=== PATIENT | female | born 1955 | race Caucasian/White ===

== ENCOUNTER 2019-07-06 01:15 | Inpatient (IN) ==
[2019-07-06] MEDS ORDERED: Gadolinium Contrast Agent (WT Based) IV PRN (01:20)
[2019-07-06] MEDS: tiZANidine 4 MG TABLET PO SCH ×3 (05:33→21:10)
[2019-07-06] MEDS ORDERED: *HR* FentaNYL (PF) 100 MCG/2 ML VIAL IVP ONE (07:46)
[2019-07-06] MEDS ORDERED: Acetaminophen IV 1,000 MG/100 ML INFUS..BTL IVPB ONE (10:14)
[2019-07-06] MEDS ORDERED: *HR* LORazepam 2 MG/ML VIAL IVP ONE (10:14)
[2019-07-06 11:27] LABS: Basophils % 0.1 %; Hematocrit 46.3 % (35.3-44.9); Hemoglobin 15.5 g/dL (11.5-15.4); Immature Granulocytes % 0.6 % (0-4); Lymphocytes # 1.3 K/mcL (0.6-4.6); Mean Corpuscular HGB Conc 33.5 g/dL (31.6-35.5); Mean Corpuscular Hemoglobin 30.4 pg (28.0-33.3); Mean Corpuscular Volume 90.8 fL (83.0-100.0); Mean Platelet Volume 9.5 fL (9.4-12.4); Monocytes # 0.1 K/mcL (0.0-1.3); Monocytes % 1.6 %; Neutrophils # 6.7 K/mcL (1.6-8.9); Platelet Count 196 K/mcL (140-400); Red Cell Distribution Width 13.3 % (11.5-14.5); Segmented Neutrophils % 81.7 %; White Blood Count 8.3 K/mcL (4.3-11.1)
[2019-07-06 11:37] LABS: Prothrombin Time 11.7 Seconds (9.4-12.1)
[2019-07-06 11:45] LABS: BUN/Creatinine Ratio 13 (6-26); Blood Urea Nitrogen 10 mg/dL (8-23); Calcium 9.6 mg/dL (8.6-10.3); Carbon Dioxide 29 mEq/L (23-29); Chloride 103 mEq/L (98-107); Glucose 159 mg/dL (70-105); Osmolality,Calculated 290 (280-300); Potassium 4.1 mEq/L (3.5-5.1); Sodium 139 mEq/L (136-145); eGFR For African Americans > 60 (> 60); eGFR For Non-African Americans > 60 (> 60)
[2019-07-06] MEDS ORDERED: Fluticasone Propionate Nasal 50 MCG/SPRAY BOTTLE NS PRN (11:57)
[2019-07-06] MEDS ORDERED: EPINEPHRINE 0.3 MG IJ PRN (11:57)
[2019-07-06] MEDS ORDERED: Ondansetron ODT 4 MG TAB.RAPDIS SL PRN (11:57)
[2019-07-06] MEDS ORDERED: Levalbuterol 1 PUFF INHALER IH PRN (11:57)
[2019-07-06] MEDS ORDERED: Furosemide 40 MG TABLET PO PRN (11:57)
[2019-07-06] MEDS ORDERED: *HR* FentaNYL (PF) 100 MCG/2 ML VIAL IVP PRN (12:04)
[2019-07-06] MEDS ORDERED: Gabapentin 300 MG CAPSULE PO STA (13:18)
[2019-07-06] MEDS: *HR* OxyCODONE ER (12 HR) 10 MG TABLET PO SCH ×2 (13:43→21:10)
[2019-07-06] MEDS ORDERED: NON-FORMULARY MEDICATION 1 EACH EACH (Dextroamphetamine/Amphetamine [Adderall 20 Mg Tablet PO SCH (15:00)
[2019-07-06] MEDS ORDERED: Gabapentin 300 MG CAPSULE PO SCH (15:00)
[2019-07-06] MEDS: *HR* OxyCODONE Immed Rel 15 MG TABLET PO PRN (15:15)
[2019-07-06] MEDS: Budesonide/Formoterol 80/4.5 1 PUFF INH IH SCH (20:43)
[2019-07-06] MEDS ORDERED: NON-FORMULARY MEDICATION 1 EACH EACH (Oxygen 2 L) NS SCH (21:00)
[2019-07-06] MEDS: Azelastine 0.1% Nasal Spray 30 ML BOTTLE NS SCH (21:10)
[2019-07-06] MEDS: Gabapentin 300 MG CAPSULE PO SCH (21:10)
[2019-07-06] MEDS: Artificial Tears SOLN 15 ML BOTTLE BOTH EYES SCH (21:10)
[2019-07-07] MEDS: *HR* OxyCODONE Immed Rel 15 MG TABLET PO PRN ×2 (00:34→12:03)
[2019-07-07] MEDS ORDERED: tiZANidine 4 MG TABLET PO ONE (04:01)
[2019-07-07 07:31] LABS: Hematocrit 44.9 % (35.3-44.9); Hemoglobin 14.4 g/dL (11.5-15.4); Mean Corpuscular HGB Conc 32.1 g/dL (31.6-35.5); Mean Corpuscular Hemoglobin 30.2 pg (28.0-33.3); Mean Corpuscular Volume 94.1 fL (83.0-100.0); Mean Platelet Volume 9.4 fL (9.4-12.4); Platelet Count 196 K/mcL (140-400); Red Blood Count 4.77 M/mcL (3.82-4.97); Red Cell Distribution Width 13.7 % (11.5-14.5)
[2019-07-07] MEDS: Budesonide/Formoterol 80/4.5 1 PUFF INH IH SCH ×2 (07:40→19:37)
[2019-07-07 07:43] LABS: White Blood Count 12.9 K/mcL (4.3-11.1)
[2019-07-07 07:51] LABS: BUN/Creatinine Ratio 15 (6-26); Blood Urea Nitrogen 13 mg/dL (8-23); Calcium 9.8 mg/dL (8.6-10.3); Carbon Dioxide 30 mEq/L (23-29); Chloride 100 mEq/L (98-107); Glucose 111 mg/dL (70-105); Osmolality,Calculated 289 (280-300); Potassium 3.5 mEq/L (3.5-5.1); Sodium 139 mEq/L (136-145); eGFR For African Americans > 60 (> 60); eGFR For Non-African Americans > 60 (> 60)
[2019-07-07] MEDS: Gabapentin 300 MG CAPSULE PO SCH (08:49)
[2019-07-07] MEDS: *HR* OxyCODONE ER (12 HR) 10 MG TABLET PO SCH ×3 (08:49→20:50)
[2019-07-07] MEDS: Azelastine 0.1% Nasal Spray 30 ML BOTTLE NS SCH ×2 (08:50→20:51)
[2019-07-07] MEDS: Artificial Tears SOLN 15 ML BOTTLE BOTH EYES SCH ×2 (08:50→20:51)
[2019-07-07] MEDS: Gabapentin 400 MG CAPSULE PO SCH ×2 (15:35→20:50)
[2019-07-08] MEDS: diazePAM 5 MG TABLET PO PRN (01:27)
[2019-07-08] MEDS ORDERED: tiZANidine 4 MG TABLET ONE (10:32)
[2019-07-08] MEDS: Budesonide/Formoterol 80/4.5 1 PUFF INH IH SCH (20:06)
[2019-07-08] MEDS: Azelastine 0.1% Nasal Spray 30 ML BOTTLE NS SCH ×2 (20:46→21:30)
[2019-07-08] MEDS: Artificial Tears SOLN 15 ML BOTTLE BOTH EYES SCH ×2 (20:46→21:15)
[2019-07-08] MEDS: *HR* OxyCODONE ER (12 HR) 10 MG TABLET PO SCH ×3 (20:47→21:29)
[2019-07-08] MEDS: Gabapentin 400 MG CAPSULE PO SCH ×3 (20:47→21:17)
[2019-07-08] MEDS: tiZANidine 4 MG TABLET PO SCH (21:16)
[2019-07-09 06:58] LABS: Hematocrit 49.6 % (35.3-44.9); Hemoglobin 15.6 g/dL (11.5-15.4); Mean Corpuscular HGB Conc 31.5 g/dL (31.6-35.5); Mean Corpuscular Hemoglobin 30.4 pg (28.0-33.3); Mean Corpuscular Volume 96.7 fL (83.0-100.0); Mean Platelet Volume 9.7 fL (9.4-12.4); Platelet Count 187 K/mcL (140-400); Red Blood Count 5.13 M/mcL (3.82-4.97); Red Cell Distribution Width 13.9 % (11.5-14.5); White Blood Count 10.9 K/mcL (4.3-11.1)
[2019-07-09 07:21] LABS: Calcium 9.5 mg/dL (8.6-10.3); Potassium 3.9 mEq/L (3.5-5.1)
[2019-07-09] MEDS: Budesonide/Formoterol 80/4.5 1 PUFF INH IH SCH ×3 (08:04→19:57)
[2019-07-09] MEDS: Artificial Tears SOLN 15 ML BOTTLE BOTH EYES SCH ×2 (08:35→22:43)
[2019-07-09] MEDS: Azelastine 0.1% Nasal Spray 30 ML BOTTLE NS SCH ×2 (08:35→22:44)
[2019-07-09] MEDS: *HR* OxyCODONE ER (12 HR) 10 MG TABLET PO SCH ×3 (08:36→21:22)
[2019-07-09] MEDS: Gabapentin 400 MG CAPSULE PO SCH ×3 (08:36→21:11)
[2019-07-09] MEDS: tiZANidine 4 MG TABLET PO SCH ×3 (08:37→21:10)
[2019-07-09] MEDS ORDERED: Gadolinium Contrast Agent (WT Based) IV PRN (09:37)
[2019-07-09 10:50] LABS: Potassium 3.7 mEq/L (3.5-5.1)
[2019-07-09 11:25] LABS: Albumin/Globulin Ratio 1.7 (1.1-2.2); Bilirubin,Total 0.5 mg/dL (0.3-1.0); Globulin 2.3 g/dL (2.4-3.5); Total Protein 6.3 g/dL (6.4-8.9)
[2019-07-09 13:49] LABS: Sodium, Urine 25.4 mEq/L
[2019-07-09] MEDS: 0.9 % Sodium Chloride 1,000 ML IVC SCH (14:42)
[2019-07-09] MEDS ORDERED: 0.9 % Sodium Chloride 500 ML IVC ONE (16:07)
[2019-07-09 20:06] LABS: Bilirubin,Urine Negative (Negative); Blood,Urine Negative (Negative); Clarity,Urine Cloudy (Clear); Color,Urine Yellow (Yellow); Glucose,Urine (UA) Normal (Normal); Ketones,Urine Negative (Negative); Leukocyte Esterase,Urine Small (Negative); Nitrite,Urine Negative (Negative); PH,Urine 5.5 pH Units (5.0-8.0); Protein,Urine Negative (Neg-Trace); Specific Gravity,Urine 1.014 (1.010-1.025); Urobilinogen,Urine Normal (Normal)
[2019-07-09 20:08] LABS: Bacteria,Urine None Seen per hpf (None-Few); RBC,Urine 0-3 per hpf (0-3); Squamous Epithelial Cell,Urine Many per lpf (None-Few); WBC,Urine 30-50 per hpf (0-3)
[2019-07-10] MEDS: *HR* OxyCODONE Immed Rel 15 MG TABLET PO PRN ×2 (03:55→12:40)
[2019-07-10] MEDS: 0.9 % Sodium Chloride 1,000 ML IVC SCH (03:56)
[2019-07-10 04:02] LABS: Basophils % 0.3 %; Eosinophils # 0.2 K/mcL (0.0-0.6); Eosinophils % 1.8 %; Hematocrit 47.6 % (35.3-44.9); Hemoglobin 15.2 g/dL (11.5-15.4); Immature Granulocytes % 0.3 % (0-4); Lymphocytes # 5.5 K/mcL (0.6-4.6); Lymphocytes % 48.4 %; Mean Corpuscular HGB Conc 31.9 g/dL (31.6-35.5); Mean Corpuscular Hemoglobin 30.3 pg (28.0-33.3); Mean Platelet Volume 9.8 fL (9.4-12.4); Monocytes % 9.1 %; Neutrophils # 4.5 K/mcL (1.6-8.9); Platelet Count 183 K/mcL (140-400); Red Blood Count 5.01 M/mcL (3.82-4.97); Red Cell Distribution Width 13.5 % (11.5-14.5); Segmented Neutrophils % 40.1 %; White Blood Count 11.3 K/mcL (4.3-11.1)
[2019-07-10 04:18] LABS: Calcium 9.2 mg/dL (8.6-10.3); Potassium 3.9 mEq/L (3.5-5.1)
[2019-07-10] MEDS: Budesonide/Formoterol 80/4.5 1 PUFF INH IH SCH ×2 (07:27→22:08)
[2019-07-10] MEDS: Gabapentin 400 MG CAPSULE PO SCH ×3 (09:15→21:10)
[2019-07-10] MEDS: tiZANidine 4 MG TABLET PO SCH ×3 (09:16→21:09)
[2019-07-10] MEDS: Azelastine 0.1% Nasal Spray 30 ML BOTTLE NS SCH ×2 (09:17→21:08)
[2019-07-10] MEDS: *HR* OxyCODONE ER (12 HR) 10 MG TABLET PO SCH ×3 (09:17→21:09)
[2019-07-10] MEDS: Artificial Tears SOLN 15 ML BOTTLE BOTH EYES SCH ×2 (09:17→21:08)
[2019-07-11] MEDS: *HR* OxyCODONE Immed Rel 15 MG TABLET PO PRN ×2 (03:10→12:35)
[2019-07-11] MEDS: diazePAM 5 MG TABLET PO PRN (03:11)
[2019-07-11 04:33] LABS: Hematocrit 43.7 % (35.3-44.9); Hemoglobin 14.1 g/dL (11.5-15.4); Mean Corpuscular HGB Conc 32.3 g/dL (31.6-35.5); Mean Corpuscular Hemoglobin 29.9 pg (28.0-33.3); Mean Corpuscular Volume 92.8 fL (83.0-100.0); Mean Platelet Volume 9.9 fL (9.4-12.4); Platelet Count 197 K/mcL (140-400); Red Blood Count 4.71 M/mcL (3.82-4.97); Red Cell Distribution Width 13.6 % (11.5-14.5); White Blood Count 7.3 K/mcL (4.3-11.1)
[2019-07-11 04:38] LABS: BUN/Creatinine Ratio 19 (6-26); Blood Urea Nitrogen 19 mg/dL (8-23); Calcium 9.2 mg/dL (8.6-10.3); Carbon Dioxide 32 mEq/L (23-29); Chloride 104 mEq/L (98-107); Glucose 121 mg/dL (70-105); Magnesium 1.8 mg/dL (1.6-2.6); Osmolality,Calculated 298 (280-300); Potassium 4.3 mEq/L (3.5-5.1); Sodium 142 mEq/L (136-145); eGFR For African Americans > 60 (> 60); eGFR For Non-African Americans 58 (> 60)
[2019-07-11 06:38] VITALS: BP 139/65
[2019-07-11] MEDS: Budesonide/Formoterol 80/4.5 1 PUFF INH IH SCH (07:44)
[2019-07-11] MEDS: tiZANidine 4 MG TABLET PO SCH (10:09)
[2019-07-11] MEDS: Gabapentin 400 MG CAPSULE PO SCH (10:09)
[2019-07-11] MEDS: Azelastine 0.1% Nasal Spray 30 ML BOTTLE NS SCH (10:10)
[2019-07-11] MEDS: Artificial Tears SOLN 15 ML BOTTLE BOTH EYES SCH (10:11)
[2019-07-11] MEDS: *HR* OxyCODONE ER (12 HR) 10 MG TABLET PO SCH (10:19)
== END 2019-07-11 13:44 | disposition home health service (06) | DRG 919 ==
LOC: EMEROOARM 01:15 → CDU 01:15 → SUATTDRO 11:16 → CDU 12:20 → 2NENU 18:59
PROVIDERS: ADMIT Student in an Organized Health Care Education/Training Program; ATTEND Internal Medicine